=== PATIENT | female | born 1975 | race African-American/Black ===

== ENCOUNTER 2020-03-24 12:28 | Emergency (ER) | payer OTHER ==
[~2020-03-24] VITALS: Ht 175.3 cm; Wt 106.8 kg
[2020-03-24] MEDS ORDERED: ACETAMINOPHEN 325 MG TABLET PO ONE (14:00)
[2020-03-24] MEDS ORDERED: ONDANSETRON HCL 4 MG TABLET PO ONE (14:15)
[2020-03-24 17:35] VITALS: BP 138/77
== END 2020-03-24 18:00 | disposition home or self-care (01) ==
LOC: EMS 12:35
DX: S92.352A Displaced fracture of fifth metatarsal bone, left foot, initial encounter for closed fracture (principal); I10 Essential (primary) hypertension; W01.0XXA Fall on same level from slipping, tripping and stumbling without subsequent striking against object, initial encounter; Y93.89 Activity, other specified; Y92.89 Other specified places as the place of occurrence of the external cause; Y99.8 Other external cause status
CPT/HCPCS: 29515; 73610; 73630; 73700; 99284; Q0162

== ENCOUNTER 2020-07-09 10:52 | Emergency (ER) | payer OTHER ==
[~2020-07-09] VITALS: Ht 165.1 cm; Wt 113.6 kg
[2020-07-09 11:26] LABS: BASOPHILS % (AUTO) 0.8 % (0.0-2.0); EOSINOPHILS % (AUTO) 3.1 % (1.0-6.0); HEMATOCRIT 35.3 % (36-46); HEMOGLOBIN 11.3 g/dL (12.0-16.0); LYMPHOCYTES # (AUTO) 2.4 K/uL (1.0-4.8); LYMPHOCYTES % (AUTO) 22.8 % (22.0-44.0); MEAN CORPUSCULAR HEMOGLOBIN 25.6 pg (26.0-34.0); MEAN CORPUSCULAR HGB CONC 32.1 G/dL (31.0-37.0); MEAN CORPUSCULAR VOLUME 80 fL (80-100); MONOCYTES # (AUTO) 0.9 K/uL (0.1-1.0); MONOCYTES % (AUTO) 8.4 % (2.0-9.0); NEUTROPHILS # (AUTO) 6.8 K/uL (1.8-7.7); NEUTROPHILS % (AUTO) 64.9 % (40.0-70.0); PLATELET COUNT (AUTO) 456 K/uL (150-450); RED BLOOD CELL COUNT(AUTO) 4.43 MIL/uL (4.00-5.20); RED CELL DISTRIBUTION WIDTH 15.2 % (11.5-14.5)
[2020-07-09 11:37] LABS: ANION GAP 10 mmol/L (8-16); CALCIUM, TOTAL 8.8 mg/dL (8.8-10.5); CARBON DIOXIDE 24 mmol/L (22-29); CHLORIDE 106 mmol/L (98-107); CREATININE 1.09 mg/dL (0.60-1.30); GLOMERULAR FILTR. RATE CALC > 60 mL/min (>60); GLUCOSE,RANDOM 98 mg/dL (70-110); SODIUM SERUM 140 mmol/L (136-145); UREA NITROGEN, BLOOD 17 mg/dL (7-18)
[2020-07-09] MEDS: IBUPROFEN 600 MG TABLET PO ONE (12:04)
[2020-07-09 12:41] VITALS: BP 137/78
== END 2020-07-09 12:54 | disposition home or self-care (01) ==
LOC: EMS 10:56
DX: R07.89 Other chest pain (principal); I10 Essential (primary) hypertension
CPT/HCPCS: 85379; 93005; 36415-L1; 36415-TC; 71045-TC

== ENCOUNTER 2021-10-22 18:30 | Emergency (ER) | payer OTHER ==
[~2021-10-22] VITALS: Ht 157.5 cm; Wt 106.8 kg
[2021-10-22 18:47] VITALS: BP 123/74
== END 2021-10-22 19:06 | disposition home or self-care (01) ==
LOC: EMS 18:32
DX: I10 Essential (primary) hypertension (principal)
CPT/HCPCS: 99281; Z7502

== ENCOUNTER 2025-03-07 22:28 | Emergency (ER) | payer OTHER ==
[~2025-03-07] VITALS: Ht 162.6 cm; Wt 104.5 kg
[2025-03-07 22:33] VITALS: TEMP 98.6
[2025-03-07 23:04] LABS: PLATELET COUNT (AUTO) 487 K/uL (150-450); RED BLOOD CELL COUNT(AUTO) 4.55 MIL/uL (4.00-5.20); RED CELL DISTRIBUTION WIDTH 16.0 % (11.5-14.5); WHITE BLOOD COUNT (AUTO) 11.5 K/uL (4.5-11.0)
[2025-03-07 23:13] LABS: CALCIUM, TOTAL 8.4 mg/dL (8.8-10.5); CREATININE 1.65 mg/dL (0.60-1.30); GLOMERULAR FILTR. RATE CALC 40 mL/min (>60); GLUCOSE,RANDOM 97 mg/dL (70-110); SODIUM SERUM 143 mmol/L (136-145); UREA NITROGEN, BLOOD 16 mg/dL (7-18)
[2025-03-07 23:22] LABS: TROPONIN I-HIGH SENSITIVITY 7 ng/L (<51)
[2025-03-08] MEDS: SODIUM CHLORIDE 0.9% 1,000 ML IV ONE (03:31)
[2025-03-08 06:00] VITALS: BP 132/68; PULSE 93; RESP 16; O2SAT 99
== END 2025-03-08 06:36 | disposition home or self-care (01) ==
LOC: EMS 22:31
DX: R10.84 Generalized abdominal pain (principal); R07.89 Other chest pain; E86.0 Dehydration; E11.9 Type 2 diabetes mellitus without complications; I10 Essential (primary) hypertension; Z98.84 Bariatric surgery status
CPT/HCPCS: 99285; 71045; 80048; 82962; 83690; 84484; 85025; 36415; 93005; 96360; 96361; 74018; J7030